=== PATIENT | female | born 1945 | race Native Hawaiian/Other Pacific Islander ===

== ENCOUNTER 2019-03-10 11:05 | Observation (INO) | payer MEDICARE, OTHER ==
[2019-03-10 11:20] VITALS: BMI 19.8
[2019-03-10 12:41] LABS: BASO % 0.6 % (0.0-2.0); EOS # 0.1 K/uL (0.0-0.7); EOS % 1.3 % (0.0-4.0); HEMOGLOBIN 13.7 g/dL (12.0-16.0); LYMPH # 1.5 K/uL (1.0-4.3); LYMPH % 23.3 % (20.0-40.0); MEAN CELL VOLUME 98.4 fl (81.0-99.0); MEAN CORPUSCULAR HEMOGLOBIN 33.3 pg (27.0-31.0); MEAN CORPUSCULAR HGB CONC 33.8 g/dL (33.0-37.0); MEAN PLATELET VOLUME 9.2 fl (7.2-11.7); MONO # 0.5 K/uL (0.0-0.8); NEUT # 4.2 K/uL (1.8-7.0); NEUT % 66.8 % (50.0-75.0); NRBC % 0.1 % (0.0-0.0); RBC 4.12 Mil/uL (3.80-5.20); RED CELL DISTRIBUTION WIDTH 13.3 % (11.5-14.5); WHITE BLOOD COUNT 6.3 K/uL (4.8-10.8)
[2019-03-10 13:11] LABS: ALB/GLOB RATIO 1.5 (1.0-2.1); ALBUMIN 4.3 g/dL (3.5-5.0); ALT/SGPT 24 U/L (9-52); AST/SGOT 25 U/L (14-36); BLOOD UREA NITROGEN 19 mg/dl (7-17); CALCIUM 9.5 mg/dL (8.4-10.2); GFR NON-AFRICAN AMERICAN > 60
[2019-03-10 13:15] LABS: B-TYPE NATRIURETIC PEPTIDE 41.9 pg/ml (0-900)
--- NOTE | 2019-03-10 13:23 | CT ---
Date of service: 03/10/2019 PROCEDURE: CT HEAD WITHOUT CONTRAST. HISTORY: dizziness COMPARISON: None available. TECHNIQUE: Axial computed tomography images were obtained through the head/brain without intravenous contrast. Radiation dose: Total exam DLP = 764.91 mGy-cm. This CT exam was performed using one or more of the following dose reduction techniques: Automated exposure control, adjustment of the mA and/or kV according to patient size, and/or use of iterative reconstruction technique. FINDINGS: HEMORRHAGE: No intracranial hemorrhage. BRAIN: Good corticomedullary differentiation is seen. Mild, proportional and diffuse expansion of the ventriculosulcal and cisternal spaces is appreciated with white matter lucency compatible with diffuse cerebral atrophy and chronic microangiopathy. No suspicious extra-axial fluid collection is identified and the midline brain anatomy appears grossly nonfocal as imaged. There is no mass effect throughout. VENTRICLES: Unremarkable. No hydrocephalus. CALVARIUM: Unremarkable. PARANASAL SINUSES: Unremarkable as visualized. No significant inflammatory changes. MASTOID AIR CELLS: Unremarkable as visualized. No inflammatory changes. OTHER FINDINGS: None. IMPRESSION: Limited age-related neuro degenerative change are identified without a definite acute intracranial findings.
--- NOTE | 2019-03-10 13:44 | CARD ---
APPROVED REPORT Date of service: 03/10/2019 EKG Measurement Heart [id number] <Conclusion> Sinus bradycardia Otherwise normal ECG
[2019-03-10 14:21] LABS: SQUAMOUS EPITHIAL < 1 /hpf (0-5); URINE BILIRUBIN NEGATIVE (NEGATIVE); URINE BLOOD MODERATE (NEGATIVE); URINE CLARITY CLEAR (Clear); URINE COLOR YELLOW (YELLOW); URINE GLUCOSE (UA) NEG (NEGATIVE); URINE LEUKOCYTE ESTERASE NEG Leu/uL (Negative); URINE PROTEIN NEGATIVE (NEGATIVE); URINE UROBILINOGEN 0.2-1.0 mg/dL (0.2-1.0)
--- NOTE | 2019-03-10 15:17 | ED PDOC ---
Syncope/Near Syncope/Dizziness Time Seen by Provider: 03/10/19 11:23 Chief Complaint (Nursing): Dizziness/Lightheaded Chief Complaint (Provider): dizziness, chest discomfort History Per: Patient History/Exam Limitations: no limitations Current Symptoms Are (Timing): Still Present Associated Symptoms Preceding Syncopal Episode: Lightheadedness Fall Associated With With Symptoms: No Severity: Moderate Additional Complaint(s): 73yo female sent from [facility] for chest discomfort and palpitations she associates with recent stressors of working at [employer] along with family and relationship stressors. Denies prior history of cardiac issues. Recently started on a statin for elevated cholesterol, denies taking ASA or other blood thinners. Denies SOB, syncope, weight loss, cough or orthopnea. Does not diffuse headache, mild nausea. Also notes anxiety and depression with poor sleep, but denies suicidal thoughts or plan. Past Medical History Reviewed: Historical Data, Nursing Documentation, Vital Signs Vital Signs: Last Vital Signs Temp 98.3 F 03/10/19 11:20 Pulse 57 L 03/10/19 11:20 Resp 16 03/10/19 11:20 BP 154/80 H 03/10/19 11:20 Pulse Ox 94 L 03/10/19 11:20 Primary Care Provider: Procedure,Nonphys - Medical History PMH: Anxiety, Hypercholesterolemia - Surgical History Surgical History: Cholecystectomy - Family History Family History: States: Unknown Family Hx - Living Arrangements Living Arrangements: Alone - Social History Current smoker - smoking cessation education provided: No Alcohol: None - Immunization History Hx Tetanus Toxoid Vaccination: No Hx Influenza Vaccination: No Hx Pneumococcal Vaccination: No - Home Medications Home Medications: Ambulatory Orders Medication Instructions Recorded Aspirin [Aspirin Chewable] 81 mg PO DAILY chew 03/11/19 PARoxetine [Paxil] 10 mg PO DAILY tab 03/11/19 diaZEpam [Valium] 2 mg PO Q12 PRN tab 03/11/19 - Allergies Allergies/Adverse Reactions: Allergies Allergy/AdvReac Type Severity Reaction Status Date / Time No Known Allergies Allergy Verified 03/10/19 11:49 Review of Systems ROS Statement: Except As Marked, All Systems Reviewed And Found Negative Constitutional: Negative for: Fever ENT: Negative for: Throat Pain Cardiovascular: Positive for: Chest Pain, Palpitations. Negative for: Paroxysmal Noc. Dyspnea Respiratory: Negative for: Shortness of Breath Gastrointestinal: Negative for: Vomiting, Abdominal Pain Genitourinary Female: Negative for: Frequency Musculoskeletal: Negative for: Neck Pain, Back Pain Skin: Negative for: Rash, Lesions Neurological: Positive for: Dizziness. Negative for: Weakness Psych: Positive for: Anxiety, Depression. Negative for: Psychosis, Suicidal samantha ation, Withdrawal Physical Exam - Reviewed Nursing Documentation Reviewed: Yes Vital Signs Reviewed: Yes - Physical Exam Appears: Positive for: Well, Non-toxic, No Acute Distress Head Exam: Positive for: ATRAUMATIC, NORMAL INSPECTION, NORMOCEPHALIC Skin: Positive for: Normal Color, Warm, DRY Eye Exam: Positive for: EOMI, Normal appearance, PERRL ENT: Positive for: Normal ENT Inspection Neck: Positive for: Normal, Painless ROM Cardiovascular/Chest: Positive for: Regular Rate, Rhythm. Negative for: Tachycardia, Other Respiratory: Positive for: CNT, Normal Breath Sounds Pulses-Radial (L): 3+/4+ Pulses-Radial (R): 3+/4+ Gastrointestinal/Abdominal: Positive for: Normal Exam, Soft Back: Positive for: Normal Inspection Extremity: Positive for: Normal ROM Neurological/Psych: Positive for: Awake, Alert, Normal Tone, Symmetric/Intact Strength, Mood/Affect (anxious). Negative for: Motor/Sensory Deficits, Facial Droop - Laboratory Results Result Diagrams: 03/10/19 12:38 03/10/19 12:38 Lab Results: Troponin I < 0.0120 ng/mL (0.00-0.120) 03/10/19 12:38 NT-Pro-B Natriuret Pep 41.9 pg/ml (0-900) 03/10/19 12:38 Total Bilirubin 0.7 mg/dl (0.2-1.3) 03/10/19 12:38 AST 25 U/L (14-36) 03/10/19 12:38 ALT 24 U/L (9-52) 03/10/19 12:38 Alkaline Phosphatase 35 U/L (38-126) L 03/10/19 12:38 Total Protein 7.3 G/DL (6.3-8.2) 03/10/19 12:38 Albumin 4.3 g/dL (3.5-5.0) 03/10/19 12:38 Globulin 3.0 gm/dL (2.2-3.9) 03/10/19 12:38 Albumin/Globulin Ratio 1.5 (1.0-2.1) 03/10/19 12:38 Urine Color Yellow (YELLOW) 03/10/19 14:12 Urine Clarity Clear (Clear) 03/10/19 14:12 Urine pH 5.0 (5.0-8.0) 03/10/19 14:12 Ur Specific [place] 1.015 (1.003-1.030) 03/10/19 14:12 Urine Protein Negative mg/dL (NEGATIVE) 03/10/19 14:12 Urine Glucose (UA) Neg mg/dL (NEGATIVE) 03/10/19 14:12 Urine Ketones Negative mg/dL (NEGATIVE) 03/10/19 14:12 Urine Blood Moderate (NEGATIVE) 03/10/19 14:12 Urine Nitrate Negative (NEGATIVE) 03/10/19 14:12 Urine Bilirubin Negative (NEGATIVE) 03/10/19 14:12 Urine Urobilinogen 0.2-1.0 mg/dL (0.2-1.0) 03/10/19 14:12 Ur Leukocyte Esterase Neg Janey/uL (Negative) 03/10/19 14:12 Urine RBC (Auto) 8 /hpf (0-3) H 03/10/19 14:12 Urine Microscopic WBC 1 /hpf (0-5) 03/10/19 14:12 Ur Squamous Epith Cells < 1 /hpf (0-5) 03/10/19 14:12 - ECG ECG: Positive for: Interpreted By Me ECG Rhythm: Positive for: Sinus Rhythm, Sinus Bradycardia, Nonspecific Changes Rate: 56 O2 Sat by Pulse Oximetry: 94 Pulse Ox Interpretation: Normal - Radiology X-Ray: Interpreted by Me X-Ray Interpretation: No Acute Disease Medical Decision Making Medical Decision Making: pt elderly with newly diagnosed high cholesterol, also notes anxiety but denies suicidal thoughts. ekg and labs reviewed, trop neg initiate ASA and admit obs medicine print production associate, Dr Gar cardiology consulted Disposition - Clinical Impression Clinical Impression: Palpitations, Chest pain, Anxiety - Patient ED Disposition Is Patient to be Admitted: Yes - Disposition Disposition Time: 14:00 Condition: FAIR - Pt Status Changed To: Hospital Disposition Of: Observation
--- NOTE | 2019-03-10 15:24 | RAD ---
Date of service: 03/10/2019 HISTORY: chest pain/ r/o infiltrate COMPARISON: No prior. TECHNIQUE: Chest PA and lateral views FINDINGS: LUNGS: No active pulmonary disease. PLEURA: No significant pleural effusion identified. No pneumothorax apparent. CARDIOVASCULAR: Atherosclerotic calcifications identified primarily aortic arch. Normal cardiac size. No pulmonary vascular congestion. OSSEOUS STRUCTURES: No significant abnormalities. VISUALIZED UPPER ABDOMEN: Normal. OTHER FINDINGS: None. IMPRESSION: No active disease.
--- NOTE | 2019-03-10 17:20 | CARD ---
APPROVED REPORT Date of service: 03/10/2019 EXAM: Two-dimensional and M-mode echocardiogram with Doppler and color Doppler. Other Information Quality : GoodRhythm : NSR INDICATION Dizziness and Vertigo Chest pressure 2D DIMENSIONS IVSd1.03 (0.7-1.1cm)LVDd3.58 (3.9-5.9cm) LVOT Diameter1.90 (1.8-2.4cm)PWd1.00 (0.7-1.1cm) IVSs1.72 (0.8-1.2cm)LVDs2.21 (2.5-4.0cm) FS (%) 38.3 %PWs1.40 (0.8-1.2cm) M-Mode DIMENSIONS Left Atrium (MM)2.60 (2.5-4.0cm)IVSd1.26 (0.7-1.1cm) Aortic Root2.91 (2.2-3.7cm)LVDd4.79 (4.0-5.6cm) Aortic Cusp Exc.1.67 (1.5-2.0cm)PWd0.90 (0.7-1.1cm) IVSs1.85 cmFS (%) 52 % LVDs2.32 (2.0-3.8cm)PWs1.65 cm Aortic Valve AoV Peak Pzgkmqjh717.7cm/sAoV VTI32.8cmAO Peak GR.11mmHg LVOT Peak Ruptjzpb494.8cm/sLVOT VTI22.00cmAO Mean GR.5mmHg MARI (VMAX)1.99ri9FKE (VTI)1.40cm2 Mitral Valve MV E Bkmfmzms90.9cm/sMV DECEL [id number] A Msgnwceb97.3cm/s MV OPZ46qzU/A ratio0.7MVA (PHT)4.26cm2 TDI Lateral E' Peak V8.72cm/sMedial E' Peak V6.19cm/sE/Lateral E'7.0 E/Medial E'9.8 Tricuspid Valve TR Peak Gtpehxfv527xz/sRAP RWRJPWQI86gbQrYE Peak Gr.24mmHg [id number] LEFT VENTRICLE The left ventricle is normal size. There is normal left ventricular wall thickness. The left ventricular systolic function is normal. The estimated ejection fraction is 60-65% No regional wall motion abnormalities noted.. Transmitral Doppler flow pattern is Grade I-abnormal relaxation pattern. No left ventricle thrombus noted on this study. There is no ventricular septal defect visualized. There is no left ventricular aneurysm. There is no mass noted in the left ventricle. RIGHT VENTRICLE The right ventricle is normal size. There is normal right ventricular wall thickness. The right ventricular systolic function is normal. ATRIA The left atrium size is normal. The right atrium size is normal. The interatrial septum is intact with no evidence for an atrial septal defect. AORTIC VALVE The aortic valve is normal in structure. Trace aortic regurgitation is present. There is no aortic valvular stenosis. There is no aortic valvular vegetation. MITRAL VALVE The mitral valve is normal in structure. There is no evidence of mitral valve prolapse. There is no mitral valve stenosis. There is no mitral valve regurgitation noted. TRICUSPID VALVE The tricuspid valve is normal in structure. There is mild tricuspid valve regurgitation noted. RVSP is calculated at 30 mm Hg. There is no tricuspid valve prolapse or vegetation. There is no tricuspid valve stenosis. PULMONIC VALVE The pulmonary valve is normal in structure. There is no pulmonic valvular regurgitation. There is no pulmonic valvular stenosis. GREAT VESSELS The aortic root is normal in size. The ascending aorta is normal in size. The pulmonary artery is normal. The IVC is normal in size and collapses >50% with inspiration. PERICARDIAL EFFUSION There is no pericardial effusion. There is no pleural effusion. <Conclusion> The estimated ejection fraction is 60-65% Transmitral Doppler flow pattern is Grade I-abnormal relaxation pattern. The left atrium size is normal. Trace aortic regurgitation is present. There is mild tricuspid valve regurgitation noted. RVSP is calculated at 30 mm Hg.
[2019-03-11 07:33] LABS: HDL CHOLESTEROL 57 MG/DL (30-70)
[2019-03-11 07:44] LABS: LDL CHOLESTEROL 108 mg/dL (0-129)
[2019-03-11] MEDS ORDERED: Enoxaparin 40 mg Syringe SC SCH (09:00)
--- NOTE | 2019-03-11 11:24 | CP.PCM.CON ---
History of Present Illness - History of Present Illness History of Present Illness: Neurology Consultation Note: Consult requested by Dr. Jarrett Mrs. Gutierrez is a 73-year-old woman with a past medical history of anxiety, who takes Xanax, and presented with dizziness. Denies gait instability, visual changes, speech changes, headache, nausea or vomiting. She does complain of dizziness and states that she feels nervous as well. She describes the sensation as light-headedness and feeling that the room is moving. Review of Systems - Constitutional Constitutional: As Per HPI - EENT Eyes: absent: As Per HPI, Blind Spots, Blurred Vision, Change in Vision, Decreased Night Vision, Diplopia, Discharge, Dry Eye, Exophthalmos, Floaters, Irritation, Itchy Eyes, Loss of Peripheral Vision, Pain, Photophobia, Requires Corrective Lenses, Sees Flashes, Spots in Vision, Tunnel Vision, Other Visual Disturbances, Loss of Vision, Other Ears: absent: As Per HPI, Decreased Hearing, Ear Discharge, Ear Pain, Tinnitus, Abnormal Hearing, Disequilibrium, Dizziness, Other Nose/Mouth/Throat: absent: As Per HPI, Epistaxis, Nasal Congestion, Nasal Discharge, Nasal Obstruction, Nasal Trauma, Nose Pain, Post Nasal Drip, Sinus Pain, Sinus Pressure, Bleeding Gums, Change in Voice, Dental Pain, Dry Mouth, Dysphagia, Halitosis, Hoarsness, Lip Swelling, Mouth Lesions, Mouth Pain, Odyn ophagia, Sore Throat, Throat Swelling, Tongue Swelling, Facial Pain, Neck Pain, Neck Mass, Other - Cardiovascular Cardiovascular: absent: As Per HPI, Acrocyanosis, Chest Pain, Chest Pain at Rest, Chest Pain with Activity, Claudication, Diaphoresis, Dyspnea, Dyspnea on Exertion, Edema, Irregular Heart Rhythm, Pain Radiating to Arm/Neck/Jaw, Leg Edema, Leg Ulcers, Lightheadedness, Orthopnea, Palpitations, Paroxysmal Nocturnal Dyspnea, Pedal Edema, Radiating Pain, Rapid Heart Rate, Slow Heart Rate, Syncope, Other - Respiratory Respiratory: absent: As Per HPI, Cough, Dyspnea, Hemoptysis, Dyspnea on Exertion, Wheezing, Snoring, Stridor, Pain on Inspiration, Chest Congestion, Excessive Mucous Production, Change in Mucous Color, Pain with Coughing, Other - Gastrointestinal Gastrointestinal: absent: As Per HPI, Abdominal Pain, Belching, Bloating, Change in Bowel Habits, Change in Stool Character, Coffee Ground Emesis, Constipation, Cramping, Diarrhea, Dyspepsia, Dysphagia, Early Satiety, Excessive Flatus, Fecal Incontinence, Heartburn, Hematemesis, Hematochezia, Loose Stools, Melena, Nausea, Odynophagia, Temesmus, Vomiting, Other - Musculoskeletal Musculoskeletal: absent: As Per HPI, Abnormal Gait, Arthralgias, Atrophy, Back Pain, Deformity, Joint Swelling, Limited Range of Motion, Loss of Height, Muscle Cramps, Muscle Weakness, Myalgias, Neck Pain, Numbness, Radiating Pain into Limb, Stiffness, Tingling, Other - Neurological Neurological: As Per HPI - Psychiatric Psychiatric: absent: As Per HPI, Abnormal Sleep Pattern, Anhedonia, Anxiety, Auditory Hallucinations, Behavioral Changes, Change in Appetite, Change in Libido, Confusion, Depression, Difficulty Concentrating, Hallucinations, Homicidal Ideation, Hopelessness, Irritability, Memory Loss, Mood Swings, Panic Attacks, Paranoia, Suicidal Ideation, Visual Hallucinations, Tactile Hallucinati ons, Other - Endocrine Endocrine: absent: As Per HPI, Change in Body Appearance, Change in Libido, Cold Intolorance, Deepening of Voice, Excessive Sweating, Fatigue, Flushing, Heat Intolorance, Increase in Ring/Shoe/Hat Size, Palpitations, Polydipsia, Polyphagi a, Polyuria, Other Past Patient History - Past Medical History & Family History Past Medical History?: Yes - Past Social History Smoking Status: Never Smoked - CARDIAC Hx Cardiac Disorders: No - PULMONARY Hx Respiratory Disorders: No - NEUROLOGICAL Hx Neurological Disorder: No - HEENT Hx HEENT Problems: No Hx Cataracts: Yes (bilateral) - RENAL Hx Chronic Kidney Disease: No - ENDOCRINE/METABOLIC Hx Endocrine Disorders: No - HEMATOLOGICAL/ONCOLOGICAL Hx Blood Disorders: No Hx AIDS: No Hx Human Immunodeficiency Virus (HIV): No - INTEGUMENTARY Hx Dermatological Problems: No - MUSCULOSKELETAL/RHEUMATOLOGICAL Hx Musculoskeletal Disorders: No Hx Falls: No - GASTROINTESTINAL Hx Gastrointestinal Disorders: No - GENITOURINARY/GYNECOLOGICAL Hx Genitourinary Disorders: No - PSYCHIATRIC Hx Psychophysiologic Disorder: Yes Hx Anxiety: Yes Hx Substance Use: No - SURGICAL HISTORY Hx Surgeries: Yes Hx Cholecystectomy: Yes Other/Comment: right breast partial mastectomy - ANESTHESIA Hx Anesthesia: Yes Hx Anesthesia Reactions: No Meds Allergies/Adverse Reactions: Allergies Allergy/AdvReac Type Severity Reaction Status Date / Time No Known Allergies Allergy Verified 03/10/19 11:49 - Medications Medications: Current Medications Alprazolam (Xanax) 0.25 mg PO BID PRN PRN Reason: Anxiety Stop: 03/18/19 09:22 Last Admin: 03/11/19 09:42 Dose: 0.25 mg Aspirin (Aspirin Chewable) 81 mg PO DAILY [facility] Last Admin: 03/11/19 09:40 Dose: 81 mg Enoxaparin Sodium (Lovenox) 40 mg SC DAILY [facility]; Protocol Last Admin: 03/11/19 09:40 Dose: 40 mg Physical Exam - Constitutional Appears: Well - Head Exam Head Exam: ATRAUMATIC, NORMAL INSPECTION, NORMOCEPHALIC - Eye Exam Eye Exam: EOMI, Normal appearance, PERRL Pupil Exam: NORMAL ACCOMODATION, PERRL - ENT Exam ENT Exam: Mucous Membranes Moist, Normal Exam - Neck Exam Neck exam: Positive for: Normal Inspection - Respiratory Exam Respiratory Exam: Clear to Auscultation Bilateral, NORMAL BREATHING PATTERN - Cardiovascular Exam Cardiovascular Exam: REGULAR RHYTHM - GI/Abdominal Exam GI & Abdominal Exam: Normal Bowel Sounds, Soft. absent: Tenderness - Extremities Exam Extremities exam: Positive for: normal inspection - Back Exam Back exam: NORMAL INSPECTION - Neurological Exam Neurological exam: Alert, CN II-XII Intact, Normal Gait, Oriented x3, Reflexes Normal - Psychiatric Exam Psychiatric exam: Normal Affect, Normal Mood - Skin Skin Exam: Dry, Intact, Normal Color, Warm Results - Vital Signs Recent Vital Signs: Last Vital Signs Temp 97.5 F L 03/11/19 08:03 Pulse 57 L 03/11/19 08:03 Resp 18 03/11/19 08:03 BP 119/76 03/11/19 08:03 Pulse Ox 99 03/11/19 08:03 - Labs Result Diagrams: 03/10/19 12:38 03/10/19 12:38 Labs: Laboratory Results - last 24 hr 03/10/19 03/10/19 03/10/19 12:38 12:38 14:12 WBC 6.3 RBC 4.12 Hgb 13.7 Hct 40.5 MCV 98.4 MCH 33.3 H MCHC 33.8 RDW 13.3 Plt Count 196 MPV 9.2 Neut % (Auto) 66.8 Lymph % (Auto) 23.3 [place] % (Auto) 8.0 Eos % (Auto) 1.3 Baso % (Auto) 0.6 Neut # (Auto) 4.2 Lymph # (Auto) 1.5 [place] # (Auto) 0.5 Eos # (Auto) 0.1 Baso # (Auto) 0.0 Sodium 141 Potassium 4.2 Chloride 106 Carbon Dioxide 31 H Anion Gap 8 L BUN 19 H Creatinine 0.6 L Est GFR ( Amer) > 60 Est GFR (Non-Af Amer) > 60 Random Glucose 117 H Calcium 9.5 Phosphorus 3.6 Magnesium 1.9 Total Bilirubin 0.7 AST 25 ALT 24 Alkaline Phosphatase 35 L Troponin I < 0.0120 NT-Pro-B Natriuret Pep 41.9 Total Protein 7.3 Albumin 4.3 Globulin 3.0 Albumin/Globulin Ratio 1.5 Triglycerides Cholesterol LDL Cholesterol Direct HDL Cholesterol Vitamin B12 TSH 3rd Generation 1.70 Urine Color Yellow Urine Clarity Clear Urine pH 5.0 Ur Specific [place] 1.015 Urine Protein Negative Urine Glucose (UA) Neg Urine Ketones Negative Urine Blood Moderate Urine Nitrate Negative Urine Bilirubin Negative Urine Urobilinogen 0.2-1.0 Ur Leukocyte Esterase Neg Urine RBC (Auto) 8 H Urine Microscopic WBC 1 Ur Squamous Epith Cells < 1 03/10/19 03/11/19 03/11/19 20:40 04:30 07:20 WBC RBC Hgb Hct MCV MCH MCHC RDW Plt Count MPV Neut % (Auto) Lymph % (Auto) [place] % (Auto) Eos % (Auto) Baso % (Auto) Neut # (Auto) Lymph # (Auto) [place] # (Auto) Eos # (Auto) Baso # (Auto) Sodium Potassium Chloride Carbon Dioxide Anion Gap BUN Creatinine Est GFR ( Amer) Est GFR (Non-Af Amer) Random Glucose Calcium Phosphorus Magnesium Total Bilirubin AST ALT Alkaline Phosphatase Troponin I < 0.0120 < 0.0120 NT-Pro-B Natriuret Pep Total Protein Albumin Globulin Albumin/Globulin Ratio Triglycerides 95 Cholesterol 201 H LDL Cholesterol Direct 108 HDL Cholesterol 57 Vitamin B12 TSH 3rd Generation Urine Color Urine Clarity Urine pH Ur Specific [place] Urine Protein Urine Glucose (UA) Urine Ketones Urine Blood Urine Nitrate Urine Bilirubin Urine Urobilinogen Ur Leukocyte Esterase Urine RBC (Auto) Urine Microscopic WBC Ur Squamous Epith Cells 03/11/19 08:00 WBC RBC Hgb Hct MCV MCH MCHC RDW Plt Count MPV Neut % (Auto) Lymph % (Auto) [place] % (Auto) Eos % (Auto) Baso % (Auto) Neut # (Auto) Lymph # (Auto) [place] # (Auto) Eos # (Auto) Baso # (Auto) Sodium Potassium Chloride Carbon Dioxide Anion Gap BUN Creatinine Est GFR ( Amer) Est GFR (Non-Af Amer) Random Glucose Calcium Phosphorus Magnesium Total Bilirubin AST ALT Alkaline Phosphatase Troponin I NT-Pro-B Natriuret Pep Total Protein Albumin Globulin Albumin/Globulin Ratio Triglycerides Cholesterol LDL Cholesterol Direct HDL Cholesterol Vitamin B12 584 TSH 3rd Generation 3.40 Urine Color Urine Clarity Urine pH Ur Specific [place] Urine Protein Urine Glucose (UA) Urine Ketones Urine Blood Urine Nitrate Urine Bilirubin Urine Urobilinogen Ur Leukocyte Esterase Urine RBC (Auto) Urine Microscopic WBC Ur Squamous Epith Cells Assessment & Plan (1) Dizziness Assessment and Plan: This appears to be mediated by her anxiety and could be vertigo. I recommend starting her on Valium 2 mg BID PRN dizziness. Thank you for this consultation. Status: Acute
[2019-03-11 15:47] VITALS: BP 111/74; RESP 16; TEMP 98.2
--- NOTE | 2019-03-11 17:33 | CP.PCM.CON ---
History of Present Illness - History of Present Illness History of Present Illness: ASKED TO SEE PT BY DR PRASAD FOR CP PT CO POUNDING CP/PALP FELT MANY WHEN HAVING STRESSFUL THOUGHTS. DENIES INCREASE WITH EXERTION OR RELIEF WITH REST. DENIES SYNCOPE. DOES GET LH AND NAUSEATED AND MILDLY TREMULOUS WITH HER PALP. SHE EXPRESSES A GREAT DEAL OF STRESS AND DEPRESSION RELATED TO HER CAREER. PT APPEARS TEARFUL. SHE ADMITS TO A DISINTEREST IN MOST ASPECTS OF LIFE THAT USED TO BRING HER KRYSTAL. ADMITS TO LESS ENERGY AND LOWER MOOD. PT AGREES THAT SHE IS LIKELY SUFFERING FROM DEPRESSION. NOTE PTS SYMPTOMS WERE NOT RELATED TO ANY ARRYTHMIA ON TELE. PTS EKG SHOWS SR, TROP NEG X 2. ECHO EF IS 65-70 PERCENT. SHE HAS HAD SEVERAL ASYMPTOMATIC SB EPISODES ON TELE. NO TACHYARRYTHMIAS. Past Patient History - Past Medical History & Family History Past Medical History?: Yes - Past Social History Smoking Status: Never Smoked - CARDIAC Hx Cardiac Disorders: No - PULMONARY Hx Respiratory Disorders: No - NEUROLOGICAL Hx Neurological Disorder: No - HEENT Hx HEENT Problems: No Hx Cataracts: Yes (bilateral) - RENAL Hx Chronic Kidney Disease: No - ENDOCRINE/METABOLIC Hx Endocrine Disorders: No - HEMATOLOGICAL/ONCOLOGICAL Hx Blood Disorders: No Hx AIDS: No Hx Human Immunodeficiency Virus (HIV): No - INTEGUMENTARY Hx Dermatological Problems: No - MUSCULOSKELETAL/RHEUMATOLOGICAL Hx Musculoskeletal Disorders: No Hx Falls: No - GASTROINTESTINAL Hx Gastrointestinal Disorders: No - GENITOURINARY/GYNECOLOGICAL Hx Genitourinary Disorders: No - PSYCHIATRIC Hx Psychophysiologic Disorder: Yes Hx Anxiety: Yes Hx Substance Use: No - SURGICAL HISTORY Hx Surgeries: Yes Hx Cholecystectomy: Yes Other/Comment: right breast partial mastectomy - ANESTHESIA Hx Anesthesia: Yes Hx Anesthesia Reactions: No Meds Allergies/Adverse Reactions: Allergies Allergy/AdvReac Type Severity Reaction Status Date / Time No Known Allergies Allergy Verified 03/10/19 11:49 - Medications Medications: Current Medications Aspirin (Aspirin Chewable) 81 mg PO DAILY [facility] Last Admin: 03/11/19 09:40 Dose: 81 mg Diazepam (Valium) 2 mg PO Q12 PRN PRN Reason: Anxiety Enoxaparin Sodium (Lovenox) 40 mg SC DAILY [facility]; Protocol Last Admin: 03/11/19 09:40 Dose: 40 mg Paroxetine HCl (Paxil) 10 mg PO DAILY [facility] Results - Vital Signs Recent Vital Signs: Last Vital Signs Temp 98.2 F 03/11/19 15:46 Pulse 53 L 03/11/19 15:46 Resp 16 03/11/19 15:46 BP 111/74 03/11/19 15:46 Pulse Ox 98 03/11/19 15:46 - Labs Result Diagrams: 03/10/19 12:38 03/10/19 12:38 Labs: Laboratory Results - last 24 hr 03/10/19 03/11/19 03/11/19 20:40 04:30 07:20 Troponin I < 0.0120 < 0.0120 Triglycerides 95 Cholesterol 201 H LDL Cholesterol Direct 108 HDL Cholesterol 57 Vitamin B12 TSH 3rd Generation 03/11/19 08:00 Troponin I Triglycerides Cholesterol LDL Cholesterol Direct HDL Cholesterol Vitamin B12 584 TSH 3rd Generation 3.40 Assessment & Plan (1) Chest pain Status: Acute (2) Palpitations Status: Acute (3) Anxiety Status: Acute (4) Depression Status: Acute (5) Sinus bradycardia Status: Acute - Assessment and Plan (Free Text) Plan: PT IS STABLE FOR DC TO HOME SHE CAN FU OUTPT FOR RE-EVAL AND FOR STRESS TESTING PT MAY NEED OUTPT MONITOR FOR HER BRADYCARDIA PT SHOULD START PAXIL FOR ANXIETY AND DEPRESSION. FU IN 2 WEEKS OUTPT 55 MIN TOTAL CARE TIME I PERSONALLY REVIEWED PTS EKG AND ECHO IMAGES.
--- NOTE | 2019-03-11 18:21 | HP ---
CHIEF COMPLAINT: Dizziness. HISTORY OF PRESENT ILLNESS: This is a 73-year-old female without significant past medical history, who had recently physical exam done by her private doctor in [place] and was told that she was physically fine, just she needs to quit the job; was in her usual state, but the patient started having dizziness, so the patient was brought to emergency room and was admitted for further management. REVIEW OF SYSTEMS: Positive for dizziness and stressful job. Review of systems otherwise is negative for headache, chest pain, shortness of breath, nausea, vomiting, diarrhea, constipation, any new joint or extremity pain. Review of systems of all other organ systems is unremarkable. PAST MEDICAL HISTORY: Unremarkable. PAST SURGICAL HISTORY: Unremarkable. PERSONAL HISTORY: The patient is currently a nonsmoker, nondrinker, no substance abuse. MEDICATIONS: The patient is not on any chronic medications. ALLERGIES: THE PATIENT IS NOT ALLERGIC TO ANY MEDICATIONS. FAMILY HISTORY: Noncontributory. PHYSICAL EXAMINATION: GENERAL: Well built, well nourished, 73-year-old female in no acute distress. VITAL SIGNS: Stable. There are no orthostatic changes. HEENT: Pupils reacting to light. No JVD. No thyromegaly. No lymphadenopathy. No nystagmus. Normocephalic, atraumatic skull. The patient does not have any carotid bruit. HEART: S1 and S2 normal, regular. No significant murmur, gallop, or rub. LUNGS: Shows good bilateral air exchange. No rales or rhonchi. ABDOMEN: Soft and nontender. No organomegaly. No fluid. Bowel sounds are present and normal. EXTREMITIES: No edema, no calf swelling, no tenderness. No acute ischemia. CENTRAL NERVOUS SYSTEM: Essentially unchanged and there is no sign of any acute gross focal motor or sensory neurological deficits. DIAGNOSTIC DATA: Available diagnostic data reviewed. Telemetry monitoring does not show significant arrhythmias. Cardiac profiles are negative . ADMITTING IMPRESSION: Dizziness. PLAN: As ordered. Case and plan discussed with the patient. Teofilo Jarrett MD
[2019-03-13 17:24] VITALS: O2SAT 94
[2019-03-13 17:27] VITALS: PULSE 56
== END 2019-03-11 18:30 | disposition home or self-care (01) ==
LOC: H.ER 11:05 → H.ERHOLD 15:12 → H.TEL 18:33
PROVIDERS: ADMIT Internal Medicine; ATTEND Internal Medicine
DX: R07.89 Other chest pain (principal); R00.2 Palpitations; F41.9 Anxiety disorder, unspecified; F32.9 Major depressive disorder, single episode, unspecified; R00.1 Bradycardia, unspecified; Z90.49 Acquired absence of other specified parts of digestive tract; H26.9 Unspecified cataract; Z79.899 Other long term (current) drug therapy; R11.0 Nausea; R42 Dizziness and giddiness; E78.00 Pure hypercholesterolemia, unspecified
CPT/HCPCS: 36415; 70450; 71046; 80053; 80061; 81003; 82607; 83036; 83735; 83880; 84100; 84443; 84484; 85025; 93005; 93306; 99285; G0378; J1650